=== PATIENT | female | born 1990 | race Caucasian/White ===

== ENCOUNTER 2017-12-24 13:51 | Emergency (ER) | payer OTHER ==
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
[2017-12-24] MEDS ORDERED: Buprenorp/Nalox 8-2 MG SL TAB.SL PO ONE (15:35)
[2017-12-24] MEDS ORDERED: Mouth Piece, Nicotine* 1 EACH CARTRIDGE INH PRN ×2 (15:38)
[2017-12-24 15:52] LABS: ABS Basophils 0.1 10^3/ul (0-0.2); ABS Eosinophils 0.2 10^3/ul (0-0.6); ABS Monocytes 0.4 10^3/ul (0-0.8); ABS Neutrophils 3.3 10^3/ul (1.5-7.7); ABS Nucleated RBC 0 10^3/ul; Eosinophil % 3.2 % (0-6); Hematocrit 37 % (35-47); Hemoglobin 12.5 g/dl (12.0-16.0); Lymphocyte % 42.7 % (25-47); Mean Corpuscular HGB Conc 34 g/dl (31-36); Mean Corpuscular Hemoglobin 29 pg (27-31); Mean Corpuscular Volume 86 fL (80-97); Mean Platelet Volume 7.9 um3 (7.4-10.4); Nucleated Red Blood Cells % 0.1; Platelet Count 274 10^3/ul (150-450); Red Blood Count 4.26 10^6/ul (4.00-5.40); Red Cell Distribution Width 14 % (10.5-15)
[2017-12-24 16:13] LABS: EGFR Non-African American 72.2 (>60)
[2017-12-24] MEDS: Nicotine Inhaler* 10 MG AMP INH PRN (16:39)
[2017-12-24] MEDS ORDERED: Nicotine PATCH 21 MG/24 HR* PATCH TRANSDERM ONE (18:38)
[2017-12-24] MEDS ORDERED: Ibuprofen TAB* 800 MG PO ONE (19:53)
[2017-12-24] MEDS ORDERED: Nicotine Patch Removal NOTE PATCH OFF SCH (21:00)
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
[2017-12-25] MEDS ORDERED: Buprenorp/Nalox 8-2 MG SL TAB.SL PO ONE (03:35)
[2017-12-25] MEDS: Nicotine Inhaler* 10 MG AMP INH PRN (05:39)
[2017-12-25] MEDS ORDERED: Ibuprofen TAB* 400 MG PO ONE (05:39)
[2017-12-25 06:02] LABS: Urine Appearance Cloudy; Urine Blood Negative (Negative); Urine Color Yellow; Urine Ketones Negative (Negative); Urine Protein Negative (Negative); Urine Red Blood Cell Absent (Absent); Urine Urobilinogen Negative (Negative); Urine White Blood Cell 3+(>20/hpf) (Absent)
[2017-12-25] MEDS ORDERED: Sulfamethox/Trimethoprim DS 800/160* TAB PO ONE (06:21)
--- NOTE | 2017-12-25 06:21 | PN ---
ED Flex Patient Progress Note Subjective: This is a 27 year-old F who is pending discharge to [facility] residential secondary to benzo and narotic dependence . She is here as she started at [facility] yesterday and had benzos in her system - she admits to taking 2mg "a bar" and has h/o seizures when coming down from benzos but this requires a much higher dose (10mg) and she hasn't used that much in a while. Does not feel like she's going to withdrawal or have a seizure - reports she feels completely fine. Has received suboxone while here. Scheduled to depart at 7: 30am. Pt offers no complaints at this time. U/A reveals + nitrates, leukocytes, etc. She admits to dysuria, burning, lower ab cramping that started 3 days ago. Had some left over amoxicillin at home which she started and it helped. No fever, chills, nausea, vomiting, diarrhea. Objective: Vitals: Most recent vital signs documented below. General NAD, Alert and oriented x3. Heart: rrr at bpm Lungs: CTA or with rales, rhonchi, wheezing AB: soft, NTTP, + BS NEURO: CN II-XII grossly intact GLADIS: moving appropriately w/o weakness or rigidity PSYCH: calm, clear thoughts, pleasant, cooperative Laboratory: Current laboratory results documented below. Assessment: 1) substance abuse 2) UTI Plan: 1) Pending discharge. Will follow up daily __while in ED___. 2) Bactrim DS 1 tab PO BID x 5 days - 1st dose given here - will write for d/c Vital Signs Temp Pulse Resp BP Pulse Ox 98.2 F 75 16 117/70 100 12/24/17 18:33 12/24/17 18:33 12/24/17 18:33 12/24/17 18:33 12/24/17 18:33 Lab Results - Entire Visit 12/25/17 12/24/17 12/24/17 05:40 15:21 15:21 WBC RBC Hgb Hct MCV MCH MCHC RDW Plt Count MPV Neut % (Auto) Lymph % (Auto) [place] % (Auto) Eos % (Auto) Baso % (Auto) Absolute Neuts (auto) Absolute Lymphs (auto) Absolute Monos (auto) Absolute Eos (auto) Absolute Basos (auto) Absolute Nucleated RBC Nucleated RBC % Sodium 141 Potassium 4.3 Chloride 105 Carbon Dioxide 32 Anion Gap 4 BUN 18 Creatinine 0.92 Est GFR ( Amer) 87.3 Est GFR (Non-Af Amer) 72.2 BUN/Creatinine Ratio 19.6 Glucose 81 Lactic Acid 0.7 Calcium 9.2 Total Bilirubin 0.30 AST 11 L ALT 8 Alkaline Phosphatase 44 Total Creatine Kinase 42 Troponin I 0.00 Total Protein 6.9 Albumin 4.2 Globulin 2.7 Albumin/Globulin Ratio 1.6 TSH 1.14 Beta HCG, Quant < 0.60 Urine Color Yellow Urine Appearance Cloudy Urine pH 5.0 Ur Specific Secretary 1.020 Urine Protein Negative Urine Ketones Negative Urine Blood Negative Urine Nitrate Positive A Urine Bilirubin Negative Urine Urobilinogen Negative Ur Leukocyte Esterase 2+ A Urine WBC (Auto) 3+(>20/hpf) A Urine RBC (Auto) Absent Ur Squamous Epith Cells Present A Urine Bacteria 3+ A Urine Glucose Negative Salicylates < 2.50 Acetaminophen < 15 Serum Alcohol < 10 12/24/17 15:21 WBC 7.0 RBC 4.26 Hgb 12.5 Hct 37 MCV 86 MCH 29 MCHC 34 RDW 14 Plt Count 274 MPV 7.9 Neut % (Auto) 47.1 Lymph % (Auto) 42.7 [place] % (Auto) 6.2 Eos % (Auto) 3.2 Baso % (Auto) 0.8 Absolute Neuts (auto) 3.3 Absolute Lymphs (auto) 3.0 Absolute Monos (auto) 0.4 Absolute Eos (auto) 0.2 Absolute Basos (auto) 0.1 Absolute Nucleated RBC 0 Nucleated RBC % 0.1 Sodium Potassium Chloride Carbon Dioxide Anion Gap BUN Creatinine Est GFR ( Amer) Est GFR (Non-Af Amer) BUN/Creatinine Ratio Glucose Lactic Acid Calcium Total Bilirubin AST ALT Alkaline Phosphatase Total Creatine Kinase Troponin I Total Protein Albumin Globulin Albumin/Globulin Ratio TSH Beta HCG, Quant Urine Color Urine Appearance Urine pH Ur Specific Secretary Urine Protein Urine Ketones Urine Blood Urine Nitrate Urine Bilirubin Urine Urobilinogen Ur Leukocyte Esterase Urine WBC (Auto) Urine RBC (Auto) Ur Squamous Epith Cells Urine Bacteria Urine Glucose Salicylates Acetaminophen Serum Alcohol
[2017-12-25 07:17] VITALS: BP 112/73
== END 2017-12-25 08:21 | disposition home or self-care (01) ==
LOC: ED 13:51
DX: F13.10 Sedative, hypnotic or anxiolytic abuse, uncomplicated (principal); F14.10 Cocaine abuse, uncomplicated; T76.11XA Adult physical abuse, suspected, initial encounter; Y07.03 Male partner, perpetrator of maltreatment and neglect; F17.200 Nicotine dependence, unspecified, uncomplicated
CPT/HCPCS: 36415; 80053; 80307; 80320; 80329; 81003; 81015; 82550; 83605; 84443; 84484; 84702; 85025; 87077; 87086; 87186; 99283; A9270-GY; G0480